=== PATIENT | male | born 1975 | race African-American/Black ===

== ENCOUNTER 2023-11-09 02:43 | Inpatient (IN) | payer SELFPAY ==
[2023-11-09] MEDS ORDERED: Aspirin Chewable 81 MG TAB ONE (03:50)
[2023-11-09] MEDS ORDERED: Nitroglycerin 0.4 MG TAB 1 EACH ONE (03:51)
[2023-11-09 04:41] LABS: ALT (SGPT) 34 U/L (8-55); AST (SGOT) 17 U/L (5-34); Albumin 4.1 g/dL (3.5-5.0); Alkaline Phosphatase 72 U/L (40-110); Anion Gap 13 mmol/L (10-20); BUN (Urea Nitrogen) 19 mg/dL (8.9-20.6); Bilirubin, Total 0.6 mg/dL (0.2-1.2); Calc. Creatinine Clearance 0 mL/min (70-130); Calcium 9.4 mg/dL (7.8-10.44); Carbon Dioxide 26 mmol/L (22-29); Chloride 105 mmol/L (98-107); Estimated GFR 75; Globulin 3.7 g/dL (2.4-3.5); Glucose 174 mg/dL (70-105); Potassium 4.2 mmol/L (3.5-5.1); Protein, Total 7.8 g/dL (6.0-8.3); Sodium 140 mmol/L (136-145)
[2023-11-09 04:43] LABS: #Eosinphils 0.1 10x3/uL (0.0-0.5); #Monocytes 0.5 10x3/uL (0.0-1.1); #Neutrophils 4.1 10x3/uL (1.5-8.4); %Basophils 0.3 % (0.0-2.0); %Eosinophils 2.1 % (0.0-6.0); %Lymphocytes 19.6 % (18.0-47.0); %Monocytes 8.2 % (0.0-10.0); %Neutrophils 69.5 % (40.0-75.0); Hematocrit 45.7 % (38.8-50.0); Hemoglobin 15.1 g/dL (13.5-17.5); Mean Corpuscular Hemoglobin 30.3 pg (27.0-33.0); Mean Corpuscular Volume 91.6 fl (81.2-95.1); Mean Platelet Volume 11.6 fl (7.4-10.4); Platelet Count 299 10x3/uL (150-450); RBC Distribution Width 11.6 % (11.5-14.5); Red Blood Cell (RBC) Count 4.99 10x6/uL (4.32-5.72); White Blood Cell (WBC) Count 5.8 10x3/uL (3.5-10.5)
[2023-11-09 04:49] LABS: SARS-CoV-2 NAA Rapid Test Not Detected (NotDetected)
[2023-11-09] MEDS ORDERED: Bisacodyl 5 MG TAB PO PRN (05:00)
[2023-11-09] MEDS ORDERED: Ondansetron ODT 4 MG TAB PO PRN (05:00)
[2023-11-09] MEDS ORDERED: Acetaminophen 325 MG TAB PO PRN (05:00)
[2023-11-09] MEDS ORDERED: Ondansetron PF 4 MG/2 ML Vial IVP PRN (05:00)
[2023-11-09] MEDS ORDERED: Nitroglycerin 0.4 MG TAB (25 Tab Bottle) SL PRN (05:00)
[2023-11-09] MEDS ORDERED: Senokot S 8.6-50 MG TAB PO PRN (05:00)
[2023-11-09] MEDS ORDERED: Acetaminophen 650 MG Suppository PR PRN (05:00)
[2023-11-09] MEDS ORDERED: HumaLOG 300 UNITS/3 ML VIAL SC PRN (05:03)
[2023-11-09] MEDS ORDERED: Glucagon 1 MG/ML KIT IM PRN (05:03)
[2023-11-09] MEDS ORDERED: Dextrose 50% Abboject 50 ML SYRINGE SLOW IVP PRN (05:03)
[2023-11-09] MEDS ORDERED: Dextrose 5% in Water 1,000 ML IV PRN (05:03)
[2023-11-09] MEDS ORDERED: Nitroglycerin 2% Ointment 1 INCH/1 GM Packet ONE (05:15)
[2023-11-09] MEDS ORDERED: Sodium Chloride 0.65% Nasal 44 ML BOT EA NARE PRN (05:36)
[2023-11-09] MEDS ORDERED: Moisturizing Cream (Eucerin) 113 GM JAR TOP PRN (05:36)
[2023-11-09] MEDS ORDERED: diphenhydrAMINE 25 MG CAP PO PRN (05:36)
[2023-11-09] MEDS ORDERED: Loratadine 10 MG TAB PO PRN (05:36)
[2023-11-09] MEDS ORDERED: Labetalol HCl 100 MG/20 ML VIAL SLOW IVP PRN (05:36)
[2023-11-09] MEDS ORDERED: Calcium Carbonate 500 MG ChewTAB PO PRN (05:36)
[2023-11-09] MEDS ORDERED: Artificial Tear Sol 15 ML BOT EA EYE PRN (05:36)
[2023-11-09] MEDS ORDERED: Temazepam 15 MG CAP PO PRN (05:36)
[2023-11-09] MEDS ORDERED: hydrALAZINE 20 MG/ML VIAL ONE ×2 (06:21→12:37)
[2023-11-09 09:00] LABS: Critical Call Chem Troponin I NUR.DM11 AT 0859; Troponin I 0.291 ng/mL (< 0.028)
[2023-11-09] MEDS ORDERED: Amlodipine 5 MG TAB PO SCH ×3 (09:00→14:45)
[2023-11-09] MEDS ORDERED: Losartan 25 MG TAB PO SCH (09:00)
[2023-11-09] MEDS ORDERED: Enoxaparin 40 MG (0.4 mL) SYRINGE ONE (09:11)
[2023-11-09] MEDS ORDERED: Amlodipine 5 MG TAB ONE (09:11)
[2023-11-09] MEDS ORDERED: Aspirin 81 mg Enteric Coated Tablet ONE (09:11)
[2023-11-09] MEDS ORDERED: Losartan 25 MG TAB ONE (10:26)
[2023-11-09] MEDS ORDERED: Famotidine 20 MG TAB ONE (10:26)
[2023-11-09] MEDS ORDERED: Carvedilol 6.25 MG TAB ONE (10:27)
[2023-11-09] MEDS: Enoxaparin 40 MG (0.4 mL) SYRINGE SC SCH (10:28)
[2023-11-09] MEDS: Aspirin Chewable 81 MG TAB PO SCH (10:29)
[2023-11-09] MEDS ORDERED: Nicotine 7 MG PATCH TD SCH (10:30)
[2023-11-09] MEDS ORDERED: Carvedilol 6.25 MG TAB PO SCH (10:30)
[2023-11-09] MEDS ORDERED: Famotidine 20 MG TAB PO SCH (10:30)
[2023-11-09] MEDS ORDERED: Losartan 50 MG TAB PO SCH (10:30)
[2023-11-09] MEDS ORDERED: Lorazepam 0.5 MG TAB ONE (10:44)
[2023-11-09] MEDS: Lorazepam 0.5 MG TAB PO PRN (10:45)
[2023-11-09] MEDS: hydrALAZINE 20 MG/ML VIAL SLOW IVP PRN ×3 (12:40→22:55)
[2023-11-09 13:15] LABS: Troponin I 0.397 ng/mL (< 0.028)
[2023-11-09 15:25] VITALS: BMI 59.8
[2023-11-09 17:31] LABS: Critical Call Chem Troponin I NUR.DM11 AT 1730
[2023-11-09] MEDS: Carvedilol 6.25 MG TAB PO SCH (17:57)
[2023-11-09 19:06] LABS: Bilirubin Neg (Negative); Blood, Urine Negative (Negative); Clarity Clear (Clear); Glucose, Urine (Dipstick) Normal (Negative); Ketone, Urine Negative (Negative); Leukocyte Negative (Negative); Nitrite Negative (Negative); Protein, Urine (Dipstick) 15 mg/dl (Neg-Trace)
[2023-11-09 19:14] LABS: Amphetamine Not Detected (NotDetected); Barbiturates Screen Not Detected (NotDetected); Benzodiazepine Screen Detected (NotDetected); Cocaine Metabolite Screen Not Detected (NotDetected); Methadone Not Detected (NotDetected); Methamphetamine Not Detected (NotDetected); Opiate Screen Not Detected (NotDetected); Oxycodone Screen Not Detected (NotDetected); Phencyclidine (PCP) Not Detected (NotDetected); THC/Cannabinoid Screen Not Detected (NotDetected); Tricyclic Screen Not Detected (NotDetected)
[2023-11-09 19:35] LABS: Bacteria/HPF None Seen HPF (None Seen); RBC/HPF None Seen HPF (0-3); Squamous Epithelial 0-3 HPF (0-3); WBC/HPF 0-3 HPF (0-3)
[2023-11-09] MEDS: Atorvastatin Calcium 40 MG TAB PO SCH (22:46)
[2023-11-09] MEDS: Famotidine 20 MG TAB PO SCH (22:46)
[2023-11-10] MEDS ORDERED: Spironolactone 25 MG TAB PO SCH ×2 (00:45→17:15)
[2023-11-10 05:57] LABS: Anion Gap 12 mmol/L (10-20); BUN (Urea Nitrogen) 16 mg/dL (8.9-20.6); Calc. Creatinine Clearance 256 mL/min (70-130); Carbon Dioxide 24 mmol/L (22-29); Chloride 106 mmol/L (98-107); Estimated GFR 92; Glucose 164 mg/dL (70-105); Magnesium 1.9 mg/dL (1.6-2.6); Sodium 138 mmol/L (136-145)
[2023-11-10 06:01] LABS: #Eosinphils 0.5 10x3/uL (0.0-0.5); #Monocytes 0.7 10x3/uL (0.0-1.1); #Neutrophils 3.6 10x3/uL (1.5-8.4); %Basophils 0.5 % (0.0-2.0); %Eosinophils 8.6 % (0.0-6.0); %Lymphocytes 17.8 % (18.0-47.0); %Monocytes 12.5 % (0.0-10.0); %Neutrophils 60.4 % (40.0-75.0); Hematocrit 42.4 % (38.8-50.0); Mean Corpuscular Hemoglobin 30.4 pg (27.0-33.0); Mean Platelet Volume 11.5 fl (7.4-10.4); Platelet Count 267 10x3/uL (150-450); RBC Distribution Width 11.9 % (11.5-14.5); Red Blood Cell (RBC) Count 4.61 10x6/uL (4.32-5.72); White Blood Cell (WBC) Count 5.9 10x3/uL (3.5-10.5)
[2023-11-10 06:07] LABS: Cardiac Risk 5.8 (Less than 4.5); Cholesterol 184 mg/dl (< 200 Desired); HDL Cholesterol 32 mg/dL (>60 Neg Risk); LDL Cholesterol, Calculated 134 mg/dL; Triglycerides 90 mg/dL (Less than 150)
[2023-11-10] MEDS: hydrALAZINE 20 MG/ML VIAL SLOW IVP PRN (07:38)
[2023-11-10] MEDS: HumaLOG 300 UNITS/3 ML VIAL SC PRN ×2 (07:43→17:57)
[2023-11-10] MEDS ORDERED: Losartan 50 MG TAB PO SCH (09:00)
[2023-11-10] MEDS: Losartan 50 MG TAB PO SCH (09:10)
[2023-11-10] MEDS: Aspirin Chewable 81 MG TAB PO SCH (09:10)
[2023-11-10] MEDS: Spironolactone 25 MG TAB PO SCH (09:10)
[2023-11-10] MEDS: Amlodipine 10 MG TAB PO SCH (09:11)
[2023-11-10] MEDS: Famotidine 20 MG TAB PO SCH ×2 (09:11→20:34)
[2023-11-10] MEDS: Enoxaparin 40 MG (0.4 mL) SYRINGE SC SCH (09:11)
[2023-11-10] MEDS: Carvedilol 6.25 MG TAB PO SCH ×2 (13:43→19:41)
[2023-11-10] MEDS ORDERED: hydrALAZINE 25 MG TAB PO SCH (16:30)
[2023-11-10] MEDS ORDERED: Isosorbide Mononitrate 30 MG ER.TAB PO SCH ×2 (17:15→21:00)
[2023-11-10] MEDS: Atorvastatin Calcium 40 MG TAB PO SCH (20:34)
[2023-11-10] MEDS: hydrALAZINE 25 MG TAB PO SCH (20:35)
[2023-11-10] MEDS: Lorazepam 0.5 MG TAB PO PRN (21:44)
[2023-11-11] MEDS: Losartan 50 MG TAB PO SCH (06:21)
[2023-11-11] MEDS: Amlodipine 10 MG TAB PO SCH (06:21)
[2023-11-11] MEDS: hydrALAZINE 25 MG TAB PO SCH (06:22)
[2023-11-11] MEDS: Aspirin Chewable 81 MG TAB PO SCH (06:23)
[2023-11-11] MEDS: Famotidine 20 MG TAB PO SCH (06:23)
[2023-11-11] MEDS: Enoxaparin 40 MG (0.4 mL) SYRINGE SC SCH (08:00)
[2023-11-11] MEDS: Spironolactone 25 MG TAB PO SCH (08:00)
[2023-11-11] MEDS: Carvedilol 6.25 MG TAB PO SCH (08:00)
[2023-11-11] MEDS ORDERED: Isosorbide Mononitrate 30 MG ER.TAB PO SCH (09:00)
[2023-11-11 09:26] VITALS: TEMP 98.1
[2023-11-11] MEDS ORDERED: Iopamidol 300 61% 100 ML VIAL FS ONE (09:41)
[2023-11-11] MEDS ORDERED: Midazolam HCl 2 mg/2 ml Vial ONE (11:10)
[2023-11-11] MEDS ORDERED: Lidocaine 1% (PF) 30 ML VIAL ONE (11:10)
[2023-11-11] MEDS ORDERED: Heparin 10,000 UNITS/ 10 ML VIAL ONE (11:10)
[2023-11-11] MEDS ORDERED: fentaNYL 50 mcg/mL 1 mL Vial ONE ×2 (11:10→13:23)
[2023-11-11] MEDS ORDERED: Nitroglycerin 50 MG/250 ML BOT 0 ML ONE (11:11)
[2023-11-11] MEDS ORDERED: hydrALAZINE 20 MG/ML VIAL ONE (12:36)
[2023-11-11] MEDS ORDERED: Nitroglycerin 0.4 MG TAB (25 Tab Bottle) SL PRN (13:24)
[2023-11-11] MEDS ORDERED: Acetaminophen/Codeine 30-300mg Tablet PO PRN ×2 (13:24)
[2023-11-11] MEDS ORDERED: Sodium Chloride 0.9% 200 ML IV PRN (13:24)
[2023-11-11] MEDS ORDERED: Nitroglycerin 0.4 MG TAB (25 Tab Bottle) ONE (13:25)
[2023-11-11] MEDS ORDERED: Sodium Chloride 0.9% 1,000 ML IV SCH (13:30)
[2023-11-11] MEDS: Lorazepam 0.5 MG TAB PO PRN (14:15)
[2023-11-11] MEDS ORDERED: Magnesium 2 GM/50 ML(in water) 2 GM in Premix 1 BAG IVPB SCH (15:00)
[2023-11-11] MEDS ORDERED: hydrALAZINE 25 MG TAB PO SCH (15:00)
[2023-11-11 16:24] VITALS: BP 190/74
[2023-11-11] MEDS ORDERED: Atorvastatin Calcium 40 MG TAB PO SCH (21:00)
== END 2023-11-11 19:00 | disposition short-term general hospital (02) | DRG 287 ==
LOC: CSHERS 02:43 → OBSVTOIN 05:28 → CSHERHOLD 05:28 → CSHTELE 13:49 → CSHERHOLD 14:16 → CSHTELE 14:17
PROVIDERS: ADMIT Family Medicine; ATTEND Internal Medicine
PROC: B2111ZZ Fluoroscopy of Multiple Coronary Arteries using Low Osmolar Contrast (ICD-10-PCS; principal; 2023-11-11)
PROC: 4A023N7 Measurement of Cardiac Sampling and Pressure, Left Heart, Percutaneous Approach (ICD-10-PCS; 2023-11-11)
PROC: B2151ZZ Fluoroscopy of Left Heart using Low Osmolar Contrast (ICD-10-PCS; 2023-11-11)
DX: I16.0 Hypertensive urgency (principal); I50.32 Chronic diastolic (congestive) heart failure; Z68.43 Body mass index [BMI] 50.0-59.9, adult; F41.9 Anxiety disorder, unspecified; R06.83 Snoring; F17.210 Nicotine dependence, cigarettes, uncomplicated; F10.90 Alcohol use, unspecified, uncomplicated; E66.01 Morbid (severe) obesity due to excess calories; R79.89 Other specified abnormal findings of blood chemistry; I11.0 Hypertensive heart disease with heart failure; M79.89 Other specified soft tissue disorders; Z83.3 Family history of diabetes mellitus; Z80.9 Family history of malignant neoplasm, unspecified; Z79.82 Long term (current) use of aspirin; Z71.6 Tobacco abuse counseling; Z11.52 Encounter for screening for COVID-19
CPT/HCPCS: 36415; 36416; 71045; 80048; 80053; 80061; 80306; 80307; 81001; 83036; 83735; 83880; 84443; 84484; 85025; 93005; 93306; 93459; 99152; 99153; C1760; C1769; J0360; J1644; J1650; J1815; J2001; J2250; J3010; J3475